=== PATIENT | male | born 1965 | race Hispanic/Latino ===

== ENCOUNTER 2018-01-04 10:01 | Emergency (ER) | payer BC, OTHER ==
[~2018-01-04 10:01] MED LIST: ASPI-1197 PO; ATOR10 PO; ESOM40CA PO; HYDR25TA PO; METF850T2 PO; METO-391 PO; NITR0.4T SL; RANO500T2 PO
[2018-01-04] MEDS ORDERED: ASPIRIN 325 MG TABLET ONE (10:05)
[2018-01-04] MEDS ORDERED: ASPIRIN 81MG TAB.CHEW ONE (10:07)
[2018-01-04 10:23] LABS: BASOPHILS % (AUTO) 1.3 % (0.0-5.0); EOSINOPHILS % (AUTO) 1.6 % (0.0-8.0); HEMATOCRIT 44.9 % (42-54); LYMPHOCYTES % (AUTO) 30.4 % (21.0-51.0); MEAN CORPUSCULAR HEMOGLOBIN 31.8 pg (27.0-33.0); MEAN CORPUSCULAR HGB CONC 35.3 g/dL (32.0-36.0); MONOCYTES % (AUTO) 8.9 % (3.0-13.0); NEUTROPHILS % (AUTO) 57.8 % (40.0-77.0); PLATELET COUNT (AUTO) 155 K/uL (130-400); RED BLOOD CELL COUNT(AUTO) 4.99 MIL/uL (4.50-6.20); RED CELL DISTRIBUTION WIDTH 13.4 % (11.0-15.5); WHITE BLOOD COUNT (AUTO) 6.9 K/uL (4.8-10.8)
[2018-01-04] MEDS ORDERED: NITROGLYCERIN 1GM/1 INCH PACKET TD ONE (10:24)
[2018-01-04 10:32] LABS: CARBON DIOXIDE 29 mmol/L (21-32); CHLORIDE 102 mmol/L (101-111); CREATININE 0.9 mg/dL (0.5-1.5); GLOMERULAR FILTR. RATE CALC 93 mL/min (>60); GLUCOSE,RANDOM 140 mg/dL (70-105); POTASSIUM 3.7 mmol/L (3.5-5.1); SODIUM SERUM 139 mmol/L (136-145); UREA NITROGEN, BLOOD 17 mg/dL (7-18)
[2018-01-04 10:43] LABS: INR 0.98 (0.85-1.15); PARTIAL THROMBOPLASTIN TIME 26.1 SEC (26.3-35.5); PROTHROMBIN TIME 10.3 SEC (9.6-11.6)
[2018-01-04 10:45] LABS: ALANINE AMINOTRANSFERASE 57 U/L (12-78); ASPARTATE AMINOTRANSFERASE 20 U/L (10-37); BILIRUBIN,TOTAL 0.9 mg/dL (0.2-1.0); CREATINE KINASE MB < 0.5 ng/mL (0.5-3.6); CREATINE KINASE, TOTAL 95 U/L (21-232); MYOGLOBIN 28 ng/mL (10-92); TOTAL PROTEIN, SERUM 7.8 g/dL (6.0-8.3)
== END 2018-01-04 14:03 | disposition left against medical advice (07) ==
LOC: EDH 10:01
DX: R07.89 Other chest pain (principal); R11.0 Nausea; R05 Cough; R51 Headache; E78.5 Hyperlipidemia, unspecified; I10 Essential (primary) hypertension; K21.9 Gastro-esophageal reflux disease without esophagitis; Z87.891 Personal history of nicotine dependence
CPT/HCPCS: 36415; 71045; 80053; 82550; 82553; 83874; 84484; 85025; 85610; 85730; 93005; 94761

== ENCOUNTER 2022-07-10 17:01 | Inpatient (IN) | payer BC ==
[~2022-07-10] VITALS: Ht 175.3 cm; Wt 115.7 kg
[~2022-07-10 17:01] MED LIST changes: +METF-445 PO; -METF850T2 PO
[2022-07-10] MEDS ORDERED: NITROGLYCERIN 1GM OINT 1 INCH/1GM TD ONE ×2 (17:19→17:20)
[2022-07-10] MEDS ORDERED: ASPIRIN 81MG CHEW TAB PO ONE (17:20)
[2022-07-10] MEDS ORDERED: ASPIRIN 81MG CHEW TAB ONE (17:20)
[2022-07-10 17:25] LABS: EOSINOPHILS % (AUTO) 1.7 % (0.0-8.0); HEMATOCRIT 40.5 % (42-54); LYMPHOCYTES % (AUTO) 38.3 % (21.0-51.0); MEAN CORPUSCULAR HEMOGLOBIN 30.9 pg (27.0-33.0); MEAN CORPUSCULAR HGB CONC 35.1 g/dL (32.0-36.0); MEAN CORPUSCULAR VOLUME 88.2 fL (79-99); MONOCYTES % (AUTO) 11.5 % (3.0-13.0); NEUTROPHILS % (AUTO) 47.2 % (40.0-77.0); PLATELET COUNT (AUTO) 158 K/uL (130-400); RED BLOOD CELL COUNT(AUTO) 4.59 MIL/uL (4.50-6.20); WHITE BLOOD COUNT (AUTO) 5.8 K/uL (4.8-10.8)
[2022-07-10 17:29] LABS: APPEARANCE,URINE CLEAR (CLEAR); BILIRUBIN,URINE NEGATIVE (NEGATIVE); COLOR,URINE YELLOW (YELLOW); GLUCOSE, URINE (UA) 100 mg/dL (NEGATIVE); KETONES,URINE NEGATIVE (NEGATIVE); LEUKOCYTE ESTERASE ,URINE NEGATIVE (NEGATIVE); NITRATE,URINE NEGATIVE (NEGATIVE); OCCULT BLOOD,URINE NEGATIVE (NEGATIVE); PH,URINE 5.5 (5.0-8.0); PROTEIN,URINE NEGATIVE (NEGATIVE); UROBILINOGEN,URINE 0.2 mg/dL (0.2-1.0)
[2022-07-10 17:33] LABS: CREATININE 1.1 mg/dL (0.5-1.5); POTASSIUM 3.5 mmol/L (3.5-5.1)
[2022-07-10 17:42] LABS: AMPHET/METH SCREEN,URINE NEGATIVE (NEGATIVE); BARBITURATE SCREEN, URINE NEGATIVE (NEGATIVE); BENZODIAZEPINES SCREEN,URINE NEGATIVE (NEGATIVE); CANNABINOID SCREEN,URINE NEGATIVE (NEGATIVE); COCAINE SCREEN,URINE NEGATIVE (NEGATIVE); PHENCYCLIDINE SCREEN,URINE NEGATIVE (NEGATIVE)
[2022-07-10 17:44] LABS: ALBUMIN 4.2 g/dL (3.5-5.0); TOTAL PROTEIN, SERUM 7.9 g/dL (6.0-8.3)
[2022-07-10 17:46] LABS: BACTERIA,URINE Rare /HPF (None Seen); MUCUS,URINE None Seen LPF (None Seen); RBC,URINE 0-1 /HPF (0-1); SQUAMOUS EPITHELIAL CELL,UR Rare /HPF (0-2); WBC,URINE 0-1 /HPF (0-1)
[2022-07-10] MEDS ORDERED: SITA25TA5 PO (18:06)
[2022-07-10] MEDS ORDERED: LISI40TA9 PO (18:06)
[2022-07-10] MEDS ORDERED: RANO10003 PO (18:06)
[2022-07-10] MEDS ORDERED: MORPHINE 4 MG SYG IV PRN (18:30)
[2022-07-10] MEDS: NITROGLYCERIN 1GM OINT 1 INCH/1GM TD SCH (18:30)
[2022-07-10] MEDS ORDERED: CLOPIDOGREL 300MG TAB PO ONE (18:30)
[2022-07-10] MEDS ORDERED: HEPARIN 25,000 UNITS/250ML D5W 250 ML IV SCH (18:30)
[2022-07-10] MEDS ORDERED: ONDANSETRON 4MG INJ IV PRN (18:30)
[2022-07-10] MEDS ORDERED: MORPHINE 2 MG SYG IV PRN (18:30)
[2022-07-10 19:34] LABS: PROTHROMBIN TIME 10.9 SEC (9.6-11.6)
[2022-07-10 19:35] LABS: PARTIAL THROMBOPLASTIN TIME 26.6 SEC (26.3-35.5)
[2022-07-10] MEDS ORDERED: HEPARIN 5,000 UNIT VIAL ONE (20:25)
[2022-07-10] MEDS: RANOLAZINE 500 MG TAB.SR.12H PO SCH (21:00)
[2022-07-10] MEDS: METOPROLOL TARTRATE 25 MG TAB PO SCH (21:00)
[2022-07-10] MEDS: FAMOTIDINE 20MG VIAL IV SCH (21:00)
[2022-07-10 22:20] VITALS: BP 139/83
[2022-07-10] MEDS: ACETAMINOPHEN 325 MG TAB PO PRN (23:16)
[2022-07-11] MEDS: NITROGLYCERIN 1GM OINT 1 INCH/1GM TD SCH ×3 (02:30→18:45)
[2022-07-11 03:29] VITALS: BP 123/82
[2022-07-11 04:08] LABS: BASOPHILS % (AUTO) 1.2 % (0.0-5.0); EOSINOPHILS % (AUTO) 2.5 % (0.0-8.0); HEMATOCRIT 38.2 % (42-54); MEAN CORPUSCULAR HEMOGLOBIN 30.4 pg (27.0-33.0); MEAN CORPUSCULAR HGB CONC 34.6 g/dL (32.0-36.0); NEUTROPHILS % (AUTO) 35.1 % (40.0-77.0); PLATELET COUNT (AUTO) 139 K/uL (130-400); RED BLOOD CELL COUNT(AUTO) 4.34 MIL/uL (4.50-6.20); RED CELL DISTRIBUTION WIDTH 11.9 % (11.0-15.5); WHITE BLOOD COUNT (AUTO) 5.2 K/uL (4.8-10.8)
[2022-07-11 04:24] LABS: CREATININE 0.9 mg/dL (0.5-1.5); MAGNESIUM 1.5 mg/dL (1.80-2.40); PHOSPHORUS 3.1 mg/dL (2.5-4.9); POTASSIUM 3.5 mmol/L (3.5-5.1)
[2022-07-11 04:42] LABS: HEMOGLOBIN A1C 6.4 % (4.0-6.0)
[2022-07-11 08:21] VITALS: BP 122/87
[2022-07-11] MEDS: RANOLAZINE 500 MG TAB.SR.12H PO SCH ×2 (09:20→22:19)
[2022-07-11] MEDS: FAMOTIDINE 20MG VIAL IV SCH ×2 (09:20→22:20)
[2022-07-11] MEDS: CLOPIDOGREL 75MG TAB PO SCH (09:20)
[2022-07-11] MEDS: ASPIRIN 81MG CHEW TAB PO SCH (09:20)
[2022-07-11] MEDS: ISOSORBIDE MONO 30MG SR TAB PO SCH (09:20)
[2022-07-11] MEDS: METOPROLOL TARTRATE 25 MG TAB PO SCH ×2 (09:20→22:19)
[2022-07-11] MEDS ORDERED: MAGNESIUM 2GM PREMIX 50ML 50 ML IV SCH (10:00)
[2022-07-11 11:14] VITALS: BP 118/74
[2022-07-11 16:18] VITALS: BP 121/70
[2022-07-11 19:45] VITALS: BP 121/76
[2022-07-11] MEDS: KCL 20 MEQ ERTAB PO SCH (22:19)
[2022-07-12] VITALS (11 sets, daily range): BP systolic 109–149; BP diastolic 58–86
[2022-07-12] MEDS: NITROGLYCERIN 1GM OINT 1 INCH/1GM TD SCH ×3 (02:49→17:34)
[2022-07-12] MEDS ORDERED: NON-FORMULARY MEDICATION 1 EACH (Ranolazine (Ranexa) 1,000 MG) PO SCH (09:00)
[2022-07-12] MEDS: ISOSORBIDE MONO 30MG SR TAB PO SCH (09:05)
[2022-07-12] MEDS: METOPROLOL TARTRATE 25 MG TAB PO SCH ×2 (09:05→20:55)
[2022-07-12] MEDS: CLOPIDOGREL 75MG TAB PO SCH (09:05)
[2022-07-12] MEDS: FAMOTIDINE 20MG VIAL IV SCH ×2 (09:06→20:55)
[2022-07-12] MEDS: RANOLAZINE 500 MG TAB.SR.12H PO SCH ×2 (09:06→20:55)
[2022-07-12] MEDS: ASPIRIN 81MG CHEW TAB PO SCH (09:06)
[2022-07-12] MEDS: KCL 20 MEQ ERTAB PO SCH (09:06)
[2022-07-12] MEDS ORDERED: SODIUM BICARB 50MEQ 50ML VIAL 50 ML ONE (14:55)
[2022-07-12] MEDS ORDERED: LIDOCAINE HCL 1% 20 ML VIAL ONE (14:55)
[2022-07-12] MEDS ORDERED: NITROGLYCERIN 50MG VIAL ONE (14:55)
[2022-07-12] MEDS ORDERED: IOHEXOL 350 MG/ML 100ML INFUS..BTL IV ONE ×2 (14:57→16:12)
[2022-07-12] MEDS ORDERED: HEPARIN 10,000 UNIT/10ML (1,000 UNIT/ML) VIAL ONE (15:29)
[2022-07-12] MEDS ORDERED: NICARDIPINE 25MG INJ IV ONE (15:29)
[2022-07-12] MEDS ORDERED: MIDAZOLAM HCL 1 MG/ML 2ML VIAL ONE (15:31)
[2022-07-12] MEDS ORDERED: FENTANYL CITRATE PF 50 MCG/1 ML 2ML VIAL ONE (15:31)
[2022-07-12] MEDS ORDERED: IOHEXOL-350 50ML VIAL IV ONE ×2 (16:12→16:15)
[2022-07-12] MEDS ORDERED: 0.9% NACL 500ML IV.SOLN 500 ML IV SCH (17:30)
[2022-07-12] MEDS: ATORVASTATIN 10 MG TABLET PO SCH (20:55)
[2022-07-13 00:10] VITALS: BP 140/79
[2022-07-13] MEDS: NITROGLYCERIN 1GM OINT 1 INCH/1GM TD SCH ×3 (01:39→18:30)
[2022-07-13] MEDS: ACETAMINOPHEN 325 MG TAB PO PRN ×2 (01:46→18:29)
[2022-07-13 04:09] LABS: HEMATOCRIT 38.6 % (42-54); MEAN CORPUSCULAR HEMOGLOBIN 30.7 pg (27.0-33.0); MEAN CORPUSCULAR HGB CONC 35.2 g/dL (32.0-36.0); MEAN CORPUSCULAR VOLUME 87.1 fL (79-99); RED BLOOD CELL COUNT(AUTO) 4.43 MIL/uL (4.50-6.20); RED CELL DISTRIBUTION WIDTH 11.8 % (11.0-15.5); WHITE BLOOD COUNT (AUTO) 4.9 K/uL (4.8-10.8)
[2022-07-13 04:12] VITALS: BP 147/73
[2022-07-13 04:19] LABS: POTASSIUM 3.5 mmol/L (3.5-5.1)
[2022-07-13 07:30] VITALS: BP 151/88
[2022-07-13] MEDS: CLOPIDOGREL 75MG TAB PO SCH (08:37)
[2022-07-13] MEDS: ASPIRIN 81MG CHEW TAB PO SCH (08:37)
[2022-07-13] MEDS: METOPROLOL TARTRATE 25 MG TAB PO SCH ×2 (08:37→20:49)
[2022-07-13] MEDS: FAMOTIDINE 20MG VIAL IV SCH ×2 (08:38→20:49)
[2022-07-13] MEDS: RANOLAZINE 500 MG TAB.SR.12H PO SCH ×2 (08:38→20:49)
[2022-07-13] MEDS: ISOSORBIDE MONO 30MG SR TAB PO SCH (08:38)
[2022-07-13 11:00] VITALS: BP 137/70
[2022-07-13 16:00] VITALS: BP 126/64
[2022-07-13] MEDS: ATORVASTATIN 10 MG TABLET PO SCH (20:49)
[2022-07-13 21:03] VITALS: BP 155/85
[2022-07-14 00:16] VITALS: BP 151/81
[2022-07-14] MEDS: NITROGLYCERIN 1GM OINT 1 INCH/1GM TD SCH ×3 (02:30→18:26)
[2022-07-14 04:57] VITALS: BP 126/81
[2022-07-14 08:00] VITALS: BP 158/86
[2022-07-14] MEDS: CLOPIDOGREL 75MG TAB PO SCH (08:26)
[2022-07-14] MEDS: RANOLAZINE 500 MG TAB.SR.12H PO SCH ×2 (08:26→21:08)
[2022-07-14] MEDS: ISOSORBIDE MONO 30MG SR TAB PO SCH (08:26)
[2022-07-14] MEDS: METOPROLOL TARTRATE 25 MG TAB PO SCH ×2 (08:26→21:08)
[2022-07-14] MEDS: ASPIRIN 81MG CHEW TAB PO SCH (08:26)
[2022-07-14] MEDS: FAMOTIDINE 20MG VIAL IV SCH ×2 (08:27→21:08)
[2022-07-14 12:02] VITALS: BP 116/74
[2022-07-14 16:00] VITALS: BP 131/74
[2022-07-14] MEDS: ATORVASTATIN 10 MG TABLET PO SCH (21:07)
[2022-07-14 22:08] VITALS: BP 143/81
[2022-07-15 00:30] VITALS: BP 142/78
[2022-07-15] MEDS: ACETAMINOPHEN 325 MG TAB PO PRN (01:17)
[2022-07-15] MEDS: NITROGLYCERIN 1GM OINT 1 INCH/1GM TD SCH ×4 (02:30→18:17)
[2022-07-15 04:16] VITALS: BP 127/76
[2022-07-15] MEDS: RANOLAZINE 500 MG TAB.SR.12H PO SCH ×2 (08:42→20:37)
[2022-07-15] MEDS: METOPROLOL TARTRATE 25 MG TAB PO SCH ×2 (08:43→20:37)
[2022-07-15] MEDS: FAMOTIDINE 20MG VIAL IV SCH ×2 (08:43→20:37)
[2022-07-15] MEDS: ASPIRIN 81MG CHEW TAB PO SCH (08:44)
[2022-07-15] MEDS: ISOSORBIDE MONO 30MG SR TAB PO SCH (08:44)
[2022-07-15] MEDS: CLOPIDOGREL 75MG TAB PO SCH (08:44)
[2022-07-15 08:49] VITALS: BP 125/70
[2022-07-15 13:48] VITALS: BP 124/71
[2022-07-15 16:34] VITALS: BP 118/69
[2022-07-15 17:13] LABS: ABG HCO3 22.7 mmol/L (21.0-28.0); ABG OXYGEN SATURATION 95.8 % (95.0-99.0); ABG PCO2 39 mmHg (35-48)
[2022-07-15] MEDS: ATORVASTATIN 10 MG TABLET PO SCH (20:37)
[2022-07-15 21:04] VITALS: BP 107/74
[2022-07-16] VITALS (45 sets, daily range): BP systolic 95–212; BP diastolic 56–182
[2022-07-16] MEDS: NITROGLYCERIN 1GM OINT 1 INCH/1GM TD SCH (02:30)
[2022-07-16 05:08] LABS: HEMATOCRIT 39.5 % (42-54); MEAN CORPUSCULAR HEMOGLOBIN 30.7 pg (27.0-33.0); MEAN CORPUSCULAR HGB CONC 34.9 g/dL (32.0-36.0); MEAN CORPUSCULAR VOLUME 87.8 fL (79-99); RED BLOOD CELL COUNT(AUTO) 4.5 MIL/uL (4.50-6.20); WHITE BLOOD COUNT (AUTO) 6.1 K/uL (4.8-10.8)
[2022-07-16 05:18] LABS: INR 1.05 (0.85-1.15); PROTHROMBIN TIME 11.4 SEC (9.6-11.6)
[2022-07-16 05:20] LABS: CREATININE 0.9 mg/dL (0.5-1.5); PARTIAL THROMBOPLASTIN TIME 27.1 SEC (26.3-35.5); POTASSIUM 3.9 mmol/L (3.5-5.1)
[2022-07-16 05:29] LABS: TOTAL PROTEIN, SERUM 7.4 g/dL (6.0-8.3)
[2022-07-16 05:44] LABS: HEMOGLOBIN A1C 6.5 % (4.0-6.0)
[2022-07-16] MEDS ORDERED: NOREPINEPHRINE BITARTRATE 8 MG in 0.9% NACL 250ML 250 ML IV PRN (06:30)
[2022-07-16] MEDS ORDERED: AMINOCAPROIC ACID 5,000MG VIAL 15,000 MG in 0.9% NACL 500ML IV.SOLN 420 ML IV PRN (06:30)
[2022-07-16] MEDS ORDERED: EPINEPHRINE PF 1MG (1:1,000) 10 MG in 0.9% NACL 250ML 240 ML IV PRN (06:30)
[2022-07-16] MEDS: ASPIRIN 81MG CHEW TAB PO SCH (09:00)
[2022-07-16] MEDS: METOPROLOL TARTRATE 25 MG TAB PO SCH (09:00)
[2022-07-16] MEDS: ISOSORBIDE MONO 30MG SR TAB PO SCH (09:00)
[2022-07-16] MEDS: RANOLAZINE 500 MG TAB.SR.12H PO SCH (09:00)
[2022-07-16] MEDS: FAMOTIDINE 20MG VIAL IV SCH ×2 (09:09→20:01)
[2022-07-16] MEDS ORDERED: NITROGLYCERIN 50MG/D5W 250ML 1 BOT ONE (12:11)
[2022-07-16] MEDS ORDERED: LIDOCAINE PF 100MG/5ML (2%) SYRINGE 5ML ONE ×3 (12:27→14:07)
[2022-07-16] MEDS ORDERED: AMINOCAPROIC ACID 5,000MG VIAL ONE (12:27)
[2022-07-16] MEDS ORDERED: NOREPINEPHRINE BITARTRATE 1 MG/1 ML ML IV ONE (12:27)
[2022-07-16] MEDS ORDERED: HEPARIN 10,000 UNIT/10ML (1,000 UNIT/ML) VIAL ONE ×2 (12:27→13:27)
[2022-07-16] MEDS ORDERED: EPINEPHRINE PF 1MG (1:1,000) 1 MG/ML AMP ONE (12:27)
[2022-07-16] MEDS ORDERED: PROTAMINE SULFATE 10 MG/ML 25ML VIAL IV ONE (12:27)
[2022-07-16] MEDS ORDERED: PROPOFOL 10 MG/ML 20ML VIAL IV ONE (12:27)
[2022-07-16] MEDS ORDERED: SODIUM BICARB 50MEQ 50ML VIAL 100 ML ONE (12:27)
[2022-07-16] MEDS ORDERED: ESMOLOL HCL 10 MG/ML 10 ML VIAL ONE ×2 (12:27→12:30)
[2022-07-16] MEDS ORDERED: MIDAZOLAM HCL 1 MG/ML 2ML VIAL ONE (12:28)
[2022-07-16] MEDS ORDERED: FENTANYL CITRATE PF 50 MCG/1 ML 20ML VIAL IJ ONE (12:28)
[2022-07-16] MEDS ORDERED: ROCURONIUM 10MG/1ML SYR 10 MG/ML ML ONE (12:28)
[2022-07-16] MEDS ORDERED: CEFAZOLIN SODIUM 1 GM VIAL ONE (12:30)
[2022-07-16] MEDS ORDERED: ETOMIDATE 20MG VIAL ONE (12:30)
[2022-07-16] MEDS: CEFAZOLIN SODIUM 1 GM VIAL IVP SCH ×2 (12:30→12:40)
[2022-07-16] MEDS ORDERED: SUCCINYLCHOLINE CHLORIDE 20 MG/ML 10 ML VIAL ONE (12:30)
[2022-07-16] MEDS ORDERED: PAPAVERINE HCL 30 MG/ML 2ML VIAL ONE (12:30)
[2022-07-16] MEDS ORDERED: AMIODARONE 150MG VIAL ONE (12:57)
[2022-07-16 13:26] LABS: ABG HCO3 24.7 mmol/L (21.0-28.0); ABG OXYGEN SATURATION 99.4 % (95.0-99.0); ABG PCO2 36 mmHg (35-48)
[2022-07-16] MEDS ORDERED: POTASSIUM CHLORIDE 20MEQ/100ML 200 ML IV ONE (13:40)
[2022-07-16 13:58] LABS: ABG BASE EXCESS -3.1 mmol/L (-2.0-3.0); ABG HCO3 21.1 mmol/L (21.0-28.0); ABG OXYGEN SATURATION 99.4 % (95.0-99.0); ABG PCO2 36 mmHg (35-48)
[2022-07-16] MEDS ORDERED: SODIUM BICARB 50MEQ 50ML VIAL 200 ML ONE (14:27)
[2022-07-16 15:28] LABS: ABG BASE EXCESS -0.4 mmol/L (-2.0-3.0); ABG HCO3 23.3 mmol/L (21.0-28.0); ABG OXYGEN SATURATION 99.3 % (95.0-99.0); ABG PCO2 35 mmHg (35-48)
[2022-07-16] MEDS ORDERED: NOREPINEPHRIN 4MG/NS 250ML 250 ML IV PRN (15:30)
[2022-07-16] MEDS ORDERED: AMINOCAPROIC ACID 5,000MG VIAL 15,000 MG in 0.9% NACL 250ML 250 ML IV SCH (15:30)
[2022-07-16] MEDS ORDERED: ALBUMIN (HUMAN) 5% 250 ML IV PRN (15:30)
[2022-07-16] MEDS ORDERED: ACETAMINOPHEN 650 MG SUPPOSITORY RC PRN (15:30)
[2022-07-16] MEDS ORDERED: 0.9%NACL 1000ML 1,000 ML IV SCH (15:30)
[2022-07-16] MEDS ORDERED: CALCIUM GLUC 1GM 1 GM in 0.9%NACL 50ML 50 ML IV PRN (15:30)
[2022-07-16] MEDS ORDERED: INSULIN REGULAR, HUMAN 3ML 100 UNIT in 0.9%NACL 100ML 99 ML IV SCH ×2 (15:30)
[2022-07-16] MEDS ORDERED: DEXTROSE 50%-WATER 50 ML DISP.SYRIN IV PRN (15:30)
[2022-07-16] MEDS ORDERED: MORPHINE 2 MG SYG IV PRN (15:30)
[2022-07-16] MEDS ORDERED: NACL 0.9% IV PRN (15:30)
[2022-07-16] MEDS ORDERED: PROPOFOL 1000 MG/100 ML 100 ML IV PRN (15:30)
[2022-07-16] MEDS ORDERED: 0.9%NACL 10ML VIAL IVP PRN (15:30)
[2022-07-16] MEDS ORDERED: ONDANSETRON 4MG INJ IV PRN (15:30)
[2022-07-16] MEDS ORDERED: GLUCAGON 1MG KIT 1 MG ML IM PRN (15:30)
[2022-07-16] MEDS ORDERED: MORPHINE 4 MG SYG IV PRN (15:30)
[2022-07-16] MEDS ORDERED: POTASSIUM PHOS 15 mMOL+NS250ML 250 ML IV PRN (15:30)
[2022-07-16] MEDS ORDERED: EPINEPHRINE IV PRN (15:30)
[2022-07-16] MEDS ORDERED: 0.9% NACL 500ML IV.SOLN 500 ML IV SCH (15:30)
[2022-07-16] MEDS ORDERED: NITROGLYCERIN 50MG/D5W 250ML 250 BOT IV SCH (15:30)
[2022-07-16] MEDS ORDERED: ACETAMINOPHEN 325 MG TAB PO PRN (15:30)
[2022-07-16] MEDS ORDERED: ASPIRIN 81MG CHEW TAB NG ONE (16:30)
[2022-07-16 16:37] LABS: ABG HCO3 22.3 mmol/L (21.0-28.0); ABG OXYGEN SATURATION 98.6 % (95.0-99.0); ABG PCO2 41 mmHg (35-48)
[2022-07-16 16:43] LABS: HEMATOCRIT 37.5 % (42-54); MEAN CORPUSCULAR HEMOGLOBIN 31.5 pg (27.0-33.0); MEAN CORPUSCULAR VOLUME 87.6 fL (79-99); RED BLOOD CELL COUNT(AUTO) 4.28 MIL/uL (4.50-6.20); RED CELL DISTRIBUTION WIDTH 12.1 % (11.0-15.5); WHITE BLOOD COUNT (AUTO) 15.6 K/uL (4.8-10.8)
[2022-07-16] MEDS: POTASSIUM CHLORIDE 20MEQ/100ML 100 ML IV PRN ×4 (16:52→22:32)
[2022-07-16 16:53] LABS: INR 1.22 (0.85-1.15); PROTHROMBIN TIME 13.1 SEC (9.6-11.6)
[2022-07-16] MEDS: MAGNESIUM 2GM PREMIX 50ML 50 ML IV PRN ×2 (16:53→17:59)
[2022-07-16] MEDS: SODIUM BICARB 50MEQ 50ML VIAL IV PRN ×3 (16:53→18:46)
[2022-07-16 16:54] LABS: PARTIAL THROMBOPLASTIN TIME 22.3 SEC (26.3-35.5)
[2022-07-16] MEDS: TRAMADOL HCL 50 MG TABLET PO PRN ×2 (16:56→21:45)
[2022-07-16 17:03] LABS: CREATININE 1.2 mg/dL (0.5-1.5); MAGNESIUM 1.4 mg/dL (1.80-2.40); PHOSPHORUS 3.8 mg/dL (2.5-4.9); POTASSIUM 3.4 mmol/L (3.5-5.1)
[2022-07-16 17:57] LABS: ABG BASE EXCESS 0.2 mmol/L (-2.0-3.0); ABG HCO3 24.5 mmol/L (21.0-28.0); ABG OXYGEN SATURATION 98.1 % (95.0-99.0); ABG PCO2 39 mmHg (35-48)
[2022-07-16 18:44] LABS: ABG BASE EXCESS -2.7 mmol/L (-2.0-3.0); ABG HCO3 23.2 mmol/L (21.0-28.0); ABG OXYGEN SATURATION 98.3 % (95.0-99.0); ABG PCO2 44 mmHg (35-48)
[2022-07-16] MEDS: CEFAZOLIN SODIUM 1 GM VIAL IV SCH (20:01)
[2022-07-16] MEDS: ATORVASTATIN 10 MG TABLET PO SCH (20:02)
[2022-07-16 21:49] LABS: CREATININE 1.1 mg/dL (0.5-1.5); POTASSIUM 3.7 mmol/L (3.5-5.1)
[2022-07-16 23:45] LABS: ABG BASE EXCESS 1.5 mmol/L (-2.0-3.0); ABG HCO3 27.2 mmol/L (21.0-28.0); ABG PCO2 47 mmHg (35-48)
[2022-07-17] VITALS (70 sets, daily range): BP systolic 92–236; BP diastolic 60–228
[2022-07-17] MEDS: TRAMADOL HCL 50 MG TABLET PO PRN ×3 (04:08→18:55)
[2022-07-17] MEDS: CEFAZOLIN SODIUM 1 GM VIAL IV SCH ×2 (04:18→11:56)
[2022-07-17 04:30] LABS: HEMATOCRIT 35.1 % (42-54); MEAN CORPUSCULAR HGB CONC 35.3 g/dL (32.0-36.0); MEAN CORPUSCULAR VOLUME 87.8 fL (79-99); RED CELL DISTRIBUTION WIDTH 12.4 % (11.0-15.5); WHITE BLOOD COUNT (AUTO) 10.2 K/uL (4.8-10.8)
[2022-07-17 04:31] LABS: ABG BASE EXCESS 0.2 mmol/L (-2.0-3.0); ABG HCO3 24.9 mmol/L (21.0-28.0); ABG PCO2 41 mmHg (35-48)
[2022-07-17 04:41] LABS: CREATININE 0.9 mg/dL (0.5-1.5); MAGNESIUM 1.5 mg/dL (1.80-2.40); PHOSPHORUS 4.6 mg/dL (2.5-4.9); POTASSIUM 3.8 mmol/L (3.5-5.1)
[2022-07-17 04:42] LABS: INR 1.12 (0.85-1.15); PROTHROMBIN TIME 12.1 SEC (9.6-11.6)
[2022-07-17 04:44] LABS: PARTIAL THROMBOPLASTIN TIME 26.5 SEC (26.3-35.5)
[2022-07-17] MEDS: POTASSIUM CHLORIDE 20MEQ/100ML 100 ML IV PRN (04:52)
[2022-07-17] MEDS: MAGNESIUM 2GM PREMIX 50ML 50 ML IV PRN (04:53)
[2022-07-17] MEDS ORDERED: METOPROLOL TARTRATE 25 MG TAB ONE (08:25)
[2022-07-17] MEDS: FAMOTIDINE 20MG VIAL IV SCH ×2 (08:28→20:32)
[2022-07-17 08:43] LABS: CREATININE 0.9 mg/dL (0.5-1.5); MAGNESIUM 1.7 mg/dL (1.80-2.40); POTASSIUM 3.8 mmol/L (3.5-5.1)
[2022-07-17] MEDS: METOPROLOL TARTRATE 25 MG TAB PO SCH ×2 (09:34→20:32)
[2022-07-17] MEDS: INSULIN HUMULIN R 100 UNIT/ML 3ML SQ SCH ×3 (11:17→20:23)
[2022-07-17] MEDS: ATORVASTATIN 10 MG TABLET PO SCH (20:32)
[2022-07-17] MEDS: ATORVASTATIN 40 MG TABLET PO SCH (20:47)
[2022-07-18] VITALS (22 sets, daily range): BP systolic 104–142; BP diastolic 48–86
[2022-07-18] MEDS: TRAMADOL HCL 50 MG TABLET PO PRN ×2 (03:22→19:21)
[2022-07-18 03:30] LABS: HEMATOCRIT 32.7 % (42-54); MEAN CORPUSCULAR HEMOGLOBIN 30.7 pg (27.0-33.0); MEAN CORPUSCULAR HGB CONC 34.9 g/dL (32.0-36.0); MEAN CORPUSCULAR VOLUME 88.1 fL (79-99); RED BLOOD CELL COUNT(AUTO) 3.71 MIL/uL (4.50-6.20); RED CELL DISTRIBUTION WIDTH 12.2 % (11.0-15.5)
[2022-07-18 03:46] LABS: CREATININE 0.9 mg/dL (0.5-1.5); MAGNESIUM 1.5 mg/dL (1.80-2.40); POTASSIUM 3.9 mmol/L (3.5-5.1)
[2022-07-18] MEDS: POTASSIUM CHLORIDE 20MEQ/100ML 100 ML IV PRN (03:57)
[2022-07-18] MEDS: MAGNESIUM 2GM PREMIX 50ML 50 ML IV PRN ×2 (05:30→07:49)
[2022-07-18] MEDS: INSULIN HUMULIN R 100 UNIT/ML 3ML SQ SCH ×4 (06:46→20:36)
[2022-07-18] MEDS: FAMOTIDINE 20MG TAB PO SCH ×2 (09:18→20:34)
[2022-07-18] MEDS: ASPIRIN 81 MG EC TAB PO SCH (09:18)
[2022-07-18] MEDS: METOPROLOL TARTRATE 25 MG TAB PO SCH ×2 (09:18→20:34)
[2022-07-18] MEDS: ACETAMINOPHEN 325 MG TAB PO PRN ×2 (09:43→16:40)
[2022-07-18] MEDS: FUROSEMIDE 20 MG TABLET PO SCH (16:38)
[2022-07-18] MEDS: ATORVASTATIN 40 MG TABLET PO SCH (20:34)
[2022-07-19] MEDS: ACETAMINOPHEN 325 MG TAB PO PRN (00:16)
[2022-07-19 00:18] VITALS: BP 112/77
[2022-07-19 04:00] VITALS: BP 115/69
[2022-07-19 04:30] LABS: BASOPHILS % (AUTO) 0.2 % (0.0-5.0); EOSINOPHILS % (AUTO) 0.1 % (0.0-8.0); HEMATOCRIT 29.6 % (42-54); LYMPHOCYTES % (AUTO) 21.5 % (21.0-51.0); MEAN CORPUSCULAR HGB CONC 35.1 g/dL (32.0-36.0); MEAN CORPUSCULAR VOLUME 88.4 fL (79-99); MONOCYTES % (AUTO) 9.1 % (3.0-13.0); NEUTROPHILS % (AUTO) 68.7 % (40.0-77.0); PLATELET COUNT (AUTO) 108 K/uL (130-400); RED BLOOD CELL COUNT(AUTO) 3.35 MIL/uL (4.50-6.20); RED CELL DISTRIBUTION WIDTH 12.2 % (11.0-15.5); WHITE BLOOD COUNT (AUTO) 9.6 K/uL (4.8-10.8)
[2022-07-19 04:49] LABS: CREATININE 0.9 mg/dL (0.5-1.5); MAGNESIUM 1.7 mg/dL (1.80-2.40); POTASSIUM 3.8 mmol/L (3.5-5.1); THYROID STIMULATING HORMONE 1.31 uIU/mL (0.36-3.74)
[2022-07-19] MEDS: INSULIN HUMULIN R 100 UNIT/ML 3ML SQ SCH ×4 (06:36→20:49)
[2022-07-19 07:00] VITALS: BP 119/67
[2022-07-19] MEDS: TRAMADOL HCL 50 MG TABLET PO PRN ×3 (08:02→22:34)
[2022-07-19] MEDS: FAMOTIDINE 20MG TAB PO SCH ×2 (08:04→20:39)
[2022-07-19] MEDS: FUROSEMIDE 20 MG TABLET PO SCH ×2 (08:04→17:20)
[2022-07-19] MEDS: ASPIRIN 81 MG EC TAB PO SCH (08:04)
[2022-07-19] MEDS: METOPROLOL TARTRATE 25 MG TAB PO SCH ×2 (08:04→20:39)
[2022-07-19] MEDS: ENOXAPARIN SODIUM 30 MG/0.3 ML SQ SCH (08:08)
[2022-07-19] MEDS: MAGNESIUM 2GM PREMIX 50ML 50 ML IV PRN (10:15)
[2022-07-19] MEDS ORDERED: POLYETHYLENE GLYCOL 3350 17 GM POWD.PACK ONE (10:23)
[2022-07-19] MEDS: POLYETHYLENE GLYCOL 3350 17 GM POWD.PACK PO SCH (10:45)
[2022-07-19 11:00] VITALS: BP 113/74
[2022-07-19 16:00] VITALS: BP 114/65
[2022-07-19 19:12] VITALS: BP 109/72
[2022-07-19] MEDS: ATORVASTATIN 40 MG TABLET PO SCH (20:39)
[2022-07-20 00:12] VITALS: BP 109/62
[2022-07-20 03:12] VITALS: BP 118/67
[2022-07-20 04:47] LABS: BASOPHILS % (AUTO) 0.5 % (0.0-5.0); EOSINOPHILS % (AUTO) 0.6 % (0.0-8.0); HEMATOCRIT 27.5 % (42-54); MEAN CORPUSCULAR HEMOGLOBIN 30.9 pg (27.0-33.0); MEAN CORPUSCULAR HGB CONC 34.9 g/dL (32.0-36.0); MEAN CORPUSCULAR VOLUME 88.4 fL (79-99); MONOCYTES % (AUTO) 9.7 % (3.0-13.0); NEUTROPHILS % (AUTO) 59.7 % (40.0-77.0); PLATELET COUNT (AUTO) 134 K/uL (130-400); RED BLOOD CELL COUNT(AUTO) 3.11 MIL/uL (4.50-6.20); RED CELL DISTRIBUTION WIDTH 12.3 % (11.0-15.5); WHITE BLOOD COUNT (AUTO) 7.8 K/uL (4.8-10.8)
[2022-07-20 04:54] LABS: CREATININE 0.9 mg/dL (0.5-1.5); MAGNESIUM 1.5 mg/dL (1.80-2.40); POTASSIUM 3.2 mmol/L (3.5-5.1)
[2022-07-20] MEDS: MAGNESIUM 2GM PREMIX 50ML 50 ML IV PRN (05:17)
[2022-07-20] MEDS: KCL 20 MEQ ERTAB PO PRN ×3 (05:17→10:58)
[2022-07-20] MEDS ORDERED: POTASSIUM CHLORIDE 20MEQ/100ML 100 ML IV PRN (05:30)
[2022-07-20] MEDS ORDERED: POTASSIUM CHLORIDE 10% ELIXIR 20 MEQ/15 ML UDCUP PO PRN (05:30)
[2022-07-20] MEDS ORDERED: LIDOCAINE HCL-MPF 1% 2ML VIAL IV PRN (05:30)
[2022-07-20] MEDS: INSULIN HUMULIN R 100 UNIT/ML 3ML SQ SCH ×4 (06:20→21:00)
[2022-07-20 07:00] VITALS: BP 136/56
[2022-07-20] MEDS: POLYETHYLENE GLYCOL 3350 17 GM POWD.PACK PO SCH (08:47)
[2022-07-20] MEDS: FUROSEMIDE 20 MG TABLET PO SCH ×2 (08:47→16:52)
[2022-07-20] MEDS: FAMOTIDINE 20MG TAB PO SCH ×2 (08:48→21:22)
[2022-07-20] MEDS: TRAMADOL HCL 50 MG TABLET PO PRN ×3 (08:48→23:31)
[2022-07-20] MEDS: ASPIRIN 81 MG EC TAB PO SCH (08:48)
[2022-07-20] MEDS: METOPROLOL TARTRATE 25 MG TAB PO SCH ×2 (08:49→21:22)
[2022-07-20] MEDS: ENOXAPARIN SODIUM 30 MG/0.3 ML SQ SCH (08:49)
[2022-07-20 11:00] VITALS: BP 163/76
[2022-07-20 16:00] VITALS: BP 128/63
[2022-07-20] MEDS ORDERED: MAGNESIUM CHLORIDE 70 MG TABLET.SA PO SCH (18:00)
[2022-07-20 19:12] VITALS: BP 120/70
[2022-07-20] MEDS: ATORVASTATIN 40 MG TABLET PO SCH (21:22)
[2022-07-21 00:12] VITALS: BP 121/72
[2022-07-21 03:12] VITALS: BP 120/75
[2022-07-21] MEDS: TRAMADOL HCL 50 MG TABLET PO PRN ×2 (05:39→13:16)
[2022-07-21] MEDS: INSULIN HUMULIN R 100 UNIT/ML 3ML SQ SCH ×3 (06:18→16:25)
[2022-07-21 08:00] VITALS: BP 111/62
[2022-07-21 08:23] LABS: CREATININE 0.8 mg/dL (0.5-1.5); MAGNESIUM 1.6 mg/dL (1.80-2.40); POTASSIUM 3.8 mmol/L (3.5-5.1)
[2022-07-21] MEDS: POLYETHYLENE GLYCOL 3350 17 GM POWD.PACK PO SCH (08:35)
[2022-07-21] MEDS: METOPROLOL TARTRATE 25 MG TAB PO SCH ×2 (08:35→17:47)
[2022-07-21] MEDS: ASPIRIN 81 MG EC TAB PO SCH (08:35)
[2022-07-21] MEDS: FUROSEMIDE 20 MG TABLET PO SCH ×2 (08:35→16:28)
[2022-07-21] MEDS: FAMOTIDINE 20MG TAB PO SCH (08:35)
[2022-07-21] MEDS: ENOXAPARIN SODIUM 30 MG/0.3 ML SQ SCH (08:36)
[2022-07-21] MEDS ORDERED: MAGNESIUM CHLORIDE 70 MG TABLET.SA PO SCH (09:00)
[2022-07-21] MEDS: KCL 20 MEQ ERTAB PO PRN ×2 (09:38→12:04)
[2022-07-21] MEDS: MAGNESIUM 2GM PREMIX 50ML 50 ML IV PRN (09:39)
[2022-07-21 11:32] VITALS: BP 119/73
[2022-07-21 14:35] LABS: HEMATOCRIT 28.3 % (42-54); RETICULOCYTE % (AUTO) 3.81 % (0.42-2.23)
[2022-07-21 15:03] LABS: % IRON SATURATION 10.6 % (30-44)
[2022-07-21 16:00] VITALS: BP 130/68
[2022-07-21] MEDS ORDERED: AEC81 PO (16:44)
[2022-07-21] MEDS ORDERED: METO25 PO (16:44)
[2022-07-21] MEDS ORDERED: FURO20TA6 PO (16:44)
[2022-07-21] MEDS ORDERED: ATOR40TA69 PO (16:44)
[2022-07-21] MEDS ORDERED: Magnesium Chloride PO (16:44)
[2022-07-21] MEDS ORDERED: COMPOUND IV MISC 1 EACH IVSOLN MISC PRN (17:00)
[2022-07-21] MEDS ORDERED: IRON SUCROSE COMPLEX 300 MG in 0.9%NACL 50ML 50 ML IV SCH (17:00)
[2022-07-21 17:34] LABS: MAGNESIUM 1.8 mg/dL (1.80-2.40)
[2022-07-21] MEDS: ATORVASTATIN 40 MG TABLET PO SCH (17:47)
== END 2022-07-21 18:15 | disposition home or self-care (01) | DRG 233 ==
LOC: EDH 17:01 → EDHIP 18:02 → 4BH 20:51 → 2CV 07-16 12:34 → 2CH 07-17 05:43 → 2DH 07-18 16:24
PROVIDERS: ADMIT Internal Medicine; ATTEND Internal Medicine
PROC: 0213093 Bypass Coronary Artery, Four or More Arteries from Coronary Artery with Autologous Venous Tissue, Open Approach (ICD-10-PCS; principal; 2022-07-12)
PROC: 4A023N7 Measurement of Cardiac Sampling and Pressure, Left Heart, Percutaneous Approach (ICD-10-PCS; 2022-07-12)
PROC: B2151ZZ Fluoroscopy of Left Heart using Low Osmolar Contrast (ICD-10-PCS; 2022-07-12)
PROC: B2111ZZ Fluoroscopy of Multiple Coronary Arteries using Low Osmolar Contrast (ICD-10-PCS; 2022-07-12)
PROC: 06BQ4ZZ Excision of Left Saphenous Vein, Percutaneous Endoscopic Approach (ICD-10-PCS; 2022-07-16)
PROC: 0PH000Z Insertion of Rigid Plate Internal Fixation Device into Sternum, Open Approach (ICD-10-PCS; 2022-07-16)
DX: I25.110 Atherosclerotic heart disease of native coronary artery with unstable angina pectoris (principal); J95.1 Acute pulmonary insufficiency following thoracic surgery; E11.9 Type 2 diabetes mellitus without complications; I10 Essential (primary) hypertension; D69.6 Thrombocytopenia, unspecified; Z20.822 Contact with and (suspected) exposure to COVID-19; E03.9 Hypothyroidism, unspecified; E66.9 Obesity, unspecified; E78.00 Pure hypercholesterolemia, unspecified; E83.42 Hypomagnesemia; E87.6 Hypokalemia; E87.70 Fluid overload, unspecified; Z79.82 Long term (current) use of aspirin; Z79.84 Long term (current) use of oral hypoglycemic drugs; Z79.899 Other long term (current) drug therapy; Z82.49 Family history of ischemic heart disease and other diseases of the circulatory system; Z83.3 Family history of diabetes mellitus; Z95.1 Presence of aortocoronary bypass graft; Z98.61 Coronary angioplasty status; Z68.37 Body mass index [BMI] 37.0-37.9, adult
CPT/HCPCS: 36415; 36600; 71045; 80048; 80053; 80061; 80305; 81001; 82435; 82550; 82728; 82746; 82803; 82947; 82948; 83036; 83540; 83550; 83605; 83735; 83880; 84100; 84132; 84295; 84443; 84484; 85014; 85018; 85025; 85027; 85045; 85347; 85610; 85730; 86850; 86900; 86901; 86923; 87635; 87804; 93005; 93306; 93356; 93458; 93880; 94002; 94010; 94150; 97039; 99156; 99157; A7048; C9803; G0378; J0171; J0282; J0330; J0690; J1644; J1650; J1756; J1815; J2001; J2250; J2440; J2704; J2720; J3010; J3475; J3480; J3490; J7030; J7040; J7120; Q9967

== ENCOUNTER 2023-10-06 05:20 | Emergency (ER) | payer BC ==
[~2023-10-06] VITALS: Ht 180.3 cm; Wt 120.7 kg
[~2023-10-06 05:20] MED LIST changes: +AEC81 PO; -ASPI-1197 PO; -ATOR10 PO; +ATOR40TA69 PO; +FURO20TA6 PO; -HYDR25TA PO; -METF-445 PO; -METO-391 PO; +METO25 PO; +Magnesium Chloride PO; -RANO500T2 PO; +SITA25TA5 PO
[2023-10-06] MEDS ORDERED: LIDOCAINE 5% TOPICAL PATCH TP ONE (06:30)
[2023-10-06] MEDS ORDERED: CYCLOBENZAPRINE HCL 10 MG TABLET PO ONE (06:30)
[2023-10-06] MEDS ORDERED: DEXAMETHASONE SOD PHOSPHATE 4 MG/ML 1ML VIAL IV ONE (06:30)
[2023-10-06 07:39] LABS: AMPHET/METH SCREEN,URINE NEGATIVE (NEGATIVE); BARBITURATE SCREEN, URINE NEGATIVE (NEGATIVE); BENZODIAZEPINES SCREEN,URINE NEGATIVE (NEGATIVE); CANNABINOID SCREEN,URINE NEGATIVE (NEGATIVE); COCAINE SCREEN,URINE NEGATIVE (NEGATIVE); OPIATE SCREEN,URINE NEGATIVE (NEGATIVE); PHENCYCLIDINE SCREEN,URINE NEGATIVE (NEGATIVE)
[2023-10-06 07:52] LABS: APPEARANCE,URINE CLEAR (CLEAR); BILIRUBIN,URINE NEGATIVE (NEGATIVE); COLOR,URINE LIGHT-YELLOW (YELLOW); GLUCOSE, URINE (UA) >=1000 mg/dL (NEGATIVE); KETONES,URINE NEGATIVE (NEGATIVE); LEUKOCYTE ESTERASE ,URINE NEGATIVE Leu/uL (NEGATIVE); NITRATE,URINE NEGATIVE (NEGATIVE); OCCULT BLOOD,URINE NEGATIVE (NEGATIVE); PH,URINE 5.5 (5.0-8.0); PROTEIN,URINE NEGATIVE (NEGATIVE); UROBILINOGEN,URINE 0.2 mg/dL (0.2-1.0)
[2023-10-06 07:54] LABS: ADD UA MICROSCOPIC YES
[2023-10-06 08:00] LABS: MUCUS,URINE RARE LPF (None Seen); RBC,URINE 0-1 /HPF (0-1); SQUAMOUS EPITHELIAL CELL,UR RARE /HPF (0-2); WBC,URINE 0-1 /HPF (0-1)
[2023-10-06 08:07] LABS: BASOPHILS # (AUTO) 0.05 K/uL (0.00-0.20); BASOPHILS % (AUTO) 0.9 % (0.0-5.0); EOSINOPHILS % (AUTO) 1.8 % (0.0-8.0); HEMATOCRIT 47.9 % (42-54); IMMATURE GRANULOCYTE ABSOLUTE 0.02 K/uL (0-1); LYMPHOCYTES # (AUTO) 1.7 K/uL (1.0-4.8); LYMPHOCYTES % (AUTO) 31.4 % (21.0-51.0); MEAN CORPUSCULAR HEMOGLOBIN 29.7 pg (27.0-33.0); MEAN CORPUSCULAR HGB CONC 33.6 g/dL (32.0-36.0); MEAN CORPUSCULAR VOLUME 88.2 fL (79-99); MONOCYTES # (AUTO) 0.4 K/uL (0.1-1.0); MONOCYTES % (AUTO) 6.7 % (3.0-13.0); NEUTROPHILS # (AUTO) 3.2 K/uL (1.8-7.7); NEUTROPHILS % (AUTO) 58.8 % (40.0-77.0); PLATELET COUNT (AUTO) 132 K/uL (130-400); RED BLOOD CELL COUNT(AUTO) 5.43 MIL/uL (4.50-6.20); RED CELL DISTRIBUTION WIDTH 12.3 % (11.0-15.5); WHITE BLOOD COUNT (AUTO) 5.4 K/uL (4.8-10.8)
[2023-10-06 08:15] LABS: CREATININE 0.8 mg/dL (0.5-1.5); POTASSIUM 3.7 mmol/L (3.5-5.1)
[2023-10-06 08:20] LABS: ALBUMIN 3.9 g/dL (3.5-5.0); BILIRUBIN,TOTAL 1.2 mg/dL (0.2-1.0); TOTAL PROTEIN, SERUM 7.4 g/dL (6.0-8.3)
[2023-10-06] MEDS ORDERED: LIDO1ADH14 TP ×2 (10:30→10:33)
[2023-10-06] MEDS ORDERED: METH-662 PO ×2 (10:30→10:33)
[2023-10-06] MEDS ORDERED: IBUP-2070 PO (10:33)
[2023-10-06 10:45] VITALS: BP 129/80; PULSE 60; RESP 16; O2SAT 100
== END 2023-10-06 10:46 | disposition home or self-care (01) ==
LOC: EDH 05:20
DX: M62.830 Muscle spasm of back (principal)
CPT/HCPCS: 99284; 96374; 80053; 80305; 85025; 81001; 36415; 72110; J1100